=== PATIENT | male | born 1955 | race Caucasian/White ===

== ENCOUNTER 2018-05-29 05:26 | Emergency (ER) | payer OTHER ==
[~2018-05-29] VITALS: Ht 175.3 cm; Wt 88.5 kg
[2018-05-29 05:41] VITALS: BP 127/79
[2018-05-29] MEDS ORDERED: COUMADIN1 M1 PO (05:48)
--- NOTE | 2018-05-29 05:54 | ED GENERAL ADULT ---
History of Present Illness General Chief Complaint: General Adult Stated Complaint: PT C/O FEVER, RT EAR INF Source: patient Exam Limitations: no limitations Vital Signs & Intake/Output Vital Signs & Intake/Output Vital Signs Date Time Temp Pulse Resp B/P B/P Pulse O2 O2 Flow FiO2 Mean Ox Delivery Rate 05/29 0541 99.0 76 20 127/79 97 Room Air Allergies Coded Allergies: NO KNOWN ALLERGIES (05/20/11) Reconcile Medications Warfarin Sodium (Coumadin) 1 MG TABLET 1 TAB PO DAILY BLOOD HEALTH (Reported) Triage Note: PT HERE WITH C/O FEVERS. PT REPORTS HE [facility]EN [facility] AND DX WITH A RIGHT SIDED EAR INFECTION AND PUT ON AMOXICILLIN. PT REPORTS HE KEEPS GETTING FEVERS. PT TOOK TYLENOL APPROX 4:30AM. Triage Nurses Notes Reviewed? yes Onset: Gradual Duration: day(s): Timing: recent history Injury Environment: home Severity: mild Modifying Factors: Improves With: rest. Associated Symptoms: body aches HPI: 62 yo gentleman diagnosed with right otitis media 2 days ago, on Amox, presents with a temperature of 101 at home and body aches. He notes that he has been tolerating his amox. He took tylenol at 10:30pm last night, and then awoke with a temp of 101 at approximately 3am. He has no cough, phlegm, dyspnea, chest pain, dizziness. He is otherwise well. Past History Travel History Traveled to [place] past 21 day No Medical History Any Pertinent Medical History? 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 No Review of Systems Review of Systems Constitutional: Reports: no symptoms. EENTM: Reports: no symptoms. Respiratory: Reports: no symptoms. Cardiovascular: Reports: no symptoms. GI: Reports: no symptoms. Genitourinary: Reports: no symptoms. Musculoskeletal: Reports: no symptoms. Skin: Reports: no symptoms. Neurological/Psychological: Reports: no symptoms. Hematologic/Endocrine: Reports: no symptoms. Immunologic/Allergic: Reports: no symptoms. All Other Systems: Reviewed and Negative Physical Exam Physical Exam General Appearance: well developed/nourished, no apparent distress Head: atraumatic, normal appearance Eyes: Bilateral: normal appearance. Ears, Nose, Throat: normal pharynx, right TM w/erythema Neck: normal inspection, supple, full range of motion Respiratory: normal breath sounds, chest non-tender, no respiratory distress, quiet respiration, lungs clear Cardiovascular: regular rate/rhythm Gastrointestinal: normal bowel sounds Back: normal inspection Extremities: normal inspection, normal capillary refill, normal range of motion, no edema Neurologic/Psych: no motor/sensory deficits, awake, alert, oriented x 3 Skin: intact, normal color, warm/dry Core Measures ACS in differential dx? No CVA/TIA Diagnosis: No Sepsis Present: No Sepsis Focused Exam Completed? No Progress Differential Diagnoses I considered the following diagnoses in my evaluation of the patient: viral syndrome vs other. Plan of Care: discussed at length... likely patient has a viral syndrome with a viral or superimposed bacterial infection of right TM. Pt comfortable in the ED, well appearing.... I do not believe broadening abx is prudent given that he is on coumadin for factor V Leiden deficiency.... Coumadin-abx interactions are difficulty. Instead, I advocated close follow up and tylenol TID for the next 2 -3 days. Initial ED EKG: none Departure Departure Disposition: HOME OR SELF CARE Condition: Stable Clinical Impression Primary Impression: Right otitis media Secondary Impressions: Viral syndrome Referrals: Justin BENTON,Boy Brown (PCP/Family) Departure Forms: Customer Survey General Discharge Information Critical Care Note Critical Care Note Critical Care Time: non-applicable
== END 2018-05-29 05:57 ==
LOC: ERH 05:26
DX: H66.91 Otitis media, unspecified, right ear (principal); B34.9 Viral infection, unspecified; Z79.01 Long term (current) use of anticoagulants